=== PATIENT | female | born 1950 | race Caucasian/White ===

== ENCOUNTER 2022-04-03 12:18 | Observation (INO) | payer MEDICARE, SELFPAY ==
[2022-04-03] VITALS (14 sets, daily range): BP systolic 145–185; BP diastolic 66–98; PULSE 65–85; RESP 10–23; TEMP 36.7–36.8; O2SAT 91–100
--- NOTE | ~2022-04-03 | CT_ITS ---
EXAMINATION: CT brain wo con INDICATION: Headache COMPARISON: None TECHNIQUE: Standard unenhanced head CT. The dose-length product (DLP) was 605.33 mGy-cm. The mA was a djusted according to patient size. Iterative reconstruction technique was employed. FINDINGS: There is no acute intraparenchymal hemorrhage. No evidence of mass lesion. No evidence of a cute infarction. There is mild periventricular and subcortical hypodensity probably related to small vessel ischemic disease. There is mild prominence of the sulci and ventricles related to cerebral atr ophy. Intracranial calcified cerebral atherosclerosis is noted. There are no extra-axial collections. There is no mass effect or midline shift. The orbits and soft tissues are unremarkable. The visualiz ed sinuses and mastoid air cells are well aerated. IMPRESSION: 1. No acute intracranial abnormality. 2. Age related findings. Reviewed, dictated and finalized at location A. NESS CONTINUITY COORDINATOR
--- NOTE | ~2022-04-03 | XR_ITS ---
EXAMINATION: XR shoulder LT min 2V DATE: 04/04/2022 15:00 INDICATION: Left shoulder pain. TECHNIQUE: 4 views of left shoulder were obtained. COMPARISON: None. FINDINGS: Bone alignment is normal. No fracture. There is mild osteoarthritis of glenohumeral joint a nd acromioclavicular joint. IMPRESSION: 1. Mild polyarticular osteoarthritis. Reviewed, dictated and finalized at location A. ING MACHINE ASSEMBLER
--- NOTE | ~2022-04-03 | XR_ITS ---
EXAMINATION: XR pelvis 1-2V INDICATION: Pain after fall TECHNIQUE: AP view of the pelvis is obtained. COMPARISON: None available FINDINGS: Bone alignment is normal. There is no fracture. Calcified atherosclerosis is noted. IMPRESSION: 1. No acute osseous abnormality. Reviewed, dictated and finalized at location A. ECTIONAL FOOD SERVICE SUPERVISOR
--- NOTE | ~2022-04-03 | CT_ITS ---
EXAMINATION: CTA BRAIN/CAROTID DATE: 04/04/2022 18:46 INDICATION: Syncope. Carotid artery disease. TECHNIQUE: Computed tomographic angiography (CTA) of the head and neck was performed with 100 mL Omni paque-350 intravenous contrast. Multiplanar reconstructions and maximum intensity projection 3D-recon structions of the carotid arteries and of the intracranial arteries were created by the technologist on a separate workstation. Precontrast CT of the head was also obtained. Automated exposure control and iterative reconstruction technique were employed.The dose-length product was 1683.37 mGy-cm. COMPARISON: Brain MR dated 04/04/2022 FINDINGS: Carotid arteries: Visualized portion of the thoracic aorta is normal in caliber with no dissection. There is a small am ount of atherosclerotic plaque with 0% stenosis of the right and left carotid bulbs relative to yovana l distal artery lumen diameter (NASCET criteria). Mild pulmonary edema at the visualized bilateral up per lung zones along with small posterior layering bilateral pleural effusions. Visualized cervical s oft tissues and superior mediastinum are unremarkable. Severe cervical spondylosis. Head: No acute intracranial hemorrhage, acute infarction or abnormal extra axial fluid collection. Ventricl es are normal and symmetric. No mass/mass effect. Changes of bilateral intraocular lens replacement. The orbits, paranasal sinuses and mastoid air cells are normal. Intracranial arteries Small amount of atherosclerotic plaque with 0% stenosis at the bilateral carotid siphons. There is no hemodynamically significant stenosis in the vertebral, basilar and internal carotid arteries. Verteb ral arteries are codominant. There are no aneurysms identified. Both A1 and P1 segments are patent. The left A1 segment is diminutive with flow likely supply to the left anterior cerebral artery via a patent anterior communicating artery. Cerebral arterial arborization appears symmetric. No abnormally enhancing brain lesions. IMPRESSION: 1. No acute intracranial process. 2. Mild of atherosclerotic plaque with 0% stenosis of the right and left carotid bulbs relative to no rmal distal artery lumen diameter (NASCET criteria). 3. Small amount of nonhemodynamically significant atherosclerotic plaque at the bilateral carotid sip hons. Otherwise unremarkable cerebral CT angiogram with no hemodynamically significant stenosis, diss ection or aneurysm. 4. Mild pulmonary edema and small bilateral pleural effusions. Reviewed, dictated and finalized at location A. AL STUNNER IMPRESSION: 1. No acute intracranial process. 2. Mild of atherosclerotic plaque with 0% stenosis of the right and left caroti d bulbs relative to normal distal artery lumen diameter (NASCET criteria). 3. Small amount of nonhemodynamically significant atherosclerotic plaque at the bilateral carotid siphons. Otherwise unremarkable cerebral CT angiogram with n o hemodynamically significant stenosis, dissection or aneurysm. 4. Mild pulmonary edema and small bilateral pleural effusions.
--- NOTE | ~2022-04-03 | CT_ITS ---
EXAMINATION: CT cervical spine wo con DATE: 04/03/2022 14:04 INDICATION: Neck pain TECHNIQUE: Computed tomography (CT) of the cervical spine was performed without intravenous contrast. The dose-length product (DLP) was 146.25 mGy-cm. Automated exposure control and iterative reconstruc tion technique were employed. COMPARISON: None FINDINGS: There is no fracture. Vertebral body alignment is normal. There is severe loss of intervert ebral disc space height at C3-4, C5-6, and C6-7. The vertebral body heights are maintained. The odont oid process is intact. There is multilevel severe facet and uncovertebral joint osteoarthritis. There appears to be smooth interlobular septal thickening of the visualized lung apices. IMPRESSION: 1. Severe cervical spondylosis without acute findings. 2. Probable mild pulmonary edema in the lung apices. Reviewed, dictated and finalized at location A. AISER PERSONAL PROPERTY
--- NOTE | ~2022-04-03 | MR_ITS ---
EXAMINATION: MR brain/brain stem wo con DATE: 04/04/2022 14:52 INDICATION: Slurred speech. Altered mental status. TECHNIQUE: Magnetic resonance imaging (MRI) of the brain and brainstem was performed without intraven ous contrast. COMPARISON: Head CT 04/03/2022 FINDINGS: There is no intracranial hemorrhage, acute infarction, or abnormal intracranial mass lesion . There are scattered areas of nonspecific increased T2-weighted signal intensity in the cerebral whi te matter, which is within normal limits for the patient's age. The ventricles are normal in size. Th e paranasal sinuses are clear. There are likely changes of ocular lens replacement surgeries. The mas toid air cells are normal. IMPRESSION: 1. Normal aging brain. Reviewed, dictated and finalized at location A. VITIES ATTENDANT IMPRESSION: 1. Normal aging brain.
--- NOTE | ~2022-04-03 | XR_ITS ---
EXAMINATION: XR shoulder RT min 2V DATE: 04/04/2022 15:00 INDICATION: Right shoulder pain. TECHNIQUE: 4 views of right shoulder were obtained. COMPARISON: None. FINDINGS: Bone alignment is normal. No fracture. There is mild osteoarthritis of acromioclavicular candelaria int and glenohumeral joint. IMPRESSION: 1. Mild polyarticular osteoarthritis. Reviewed, dictated and finalized at location A. T TECH
--- NOTE | ~2022-04-03 | XR_ITS ---
EXAMINATION: XR chest 1V portable INDICATION: Chest pain after fall TECHNIQUE: Portable AP chest at 1326 hours COMPARISON: None available FINDINGS: The lungs are free of acute opacities. No pleural effusion or pneumothorax. The cardiomedia stinal silhouette is normal. Surgical clips in the right upper quadrant are likely from prior cholecy stectomy. IMPRESSION: 1. No acute cardiopulmonary abnormality. Reviewed, dictated and finalized at location A. NDER
--- NOTE | 2022-04-03 12:43 | ECG_ITS ---
Measurements Intervals [place] Rate: 65 P: 52 NH: 149 QRS: 101 QRSD: 153 T: 29 QT: 471 QTc: 492 Interpretive Statements SINUS RHYTHM RIGHT AXIS DEVIATION [QRS AXIS > 100] RIGHT BUNDLE BRANCH BLOCK [120+ ms QRS DURATION, UPRIGHT V1, 40+ ms S IN I/aVL/V4/V5/V6] NO PREVIOUS ECG AVAILABLE FOR COMPARISON Electronically Signed On 04-04-2022 11:51:18 SNOW REMOVER by Hair Almaguer M.D.
--- NOTE | 2022-04-03 13:18 | ED.SYNCOPE ---
HPI - Syncope General Chief Complaint: Syncope Stated Complaint: glf, in and out of consciousness, L shoulder pain Time Seen by Provider: 04/03/22 12:43 Source: family and EMS Mode of arrival: EMS History of Present Illness HPI narrative: Patient was sitting on a chair in the shower unattended, witnessed by her daughter that she lost her balance while sitting and fell to the ground, unresponsive for less than 30 seconds, complaining of neck pain. Patient was hospitalized at the [facility] where she used to live at [facility] and then got discharged to rehab with a diagnosis of altered mental status, sepsis, urinary tract infection, acute encephalopathy. Her daughter reported that patient had last fall was 2 weeks ago and was hospitalized at that time at [facility]. Patient moved recently to stay with her daughter. Patient old records showed Patient was admitted to a rehab facility for short-term skilled rehab/nursing, stay s/p hospitalization for altered mental status, sepsis, urinary tract infection and acute encephalopathy. Insurance set last covered day for skilled services for March 20, 2022, however family requested discharge on March 19, 2022. History of dementia, hypertension, diabetes Related Data Allergies Allergy/AdvReac Type Severity Reaction Status Date / Time No Known Allergies Allergy Verified 04/03/22 12:47 Review of Systems Review of Systems: All systems reviewed & are unremarkable except as noted in HPI and below Exam Narrative: General appearance: Well-developed, well-nourished Skin: Normal color, stage I decubitus ulcer left buttock Head: Normocephalic, nontraumatic Eyes: Clear conjunctiva ENT: Oropharynx normal, ears normal, nose normal Neck: C-collar on, diffuse tenderness Chest and respiratory: Airway patent, no respiratory distress, no accessory muscle use Heart: Regular rate/rhythm Abdomen: Soft, nontender, no organomegaly, quiet bowel sounds Vascular: Normal peripheral pulses, normal capillary refill. Musculoskeletal: Normal range of motion, nontender back Neurologic: Alert and oriented to her name only Course Vital Signs Vital signs: Vital Signs Temperature 36.8 C 04/03/22 12:20 Pulse Rate 65 04/03/22 12:20 Respiratory Rate 20 04/03/22 12:20 Blood Pressure 185/98 H 04/03/22 12:20 Pulse Oximetry 95 04/03/22 12:20 Oxygen Delivery Room Air 02/05/23 12:20 Temperature 36.8 C 04/03/22 12:20 Pulse Rate 70 04/03/22 15:45 Respiratory Rate 12 04/03/22 15:45 Blood Pressure 160/66 H 04/03/22 13:31 Pulse Oximetry 100 04/03/22 15:45 Oxygen Delivery Room Air 04/03/22 12:20 MDM - Syncope MDM Narrative Medical decision making narrative: Patient brought to the emergency room by ambulance with her daughter because of a fall while sitting on a chair in the shower. History of a fall, last 1 was 2 weeks ago, patient used to be at [facility], brought to [place] by her daughter who supposed to take care of her. The daughter reported inability to take care of her mom because she needs 24/7 assistant director of financial aid. General weakness, intracranial hemorrhage, electrolyte imbalance, urinary tract infection, pneumonia are my concern. Labs, chest x-ray, CT head, CT cervical spine and pelvic x-ray ordered. Normal saline 1 L IV ordered. Work-up today showed hemoglobin of 9.6, creatinine of 1.6. No old records for comparison. CT head, CT cervical spine, chest x-ray and pelvic x-ray showed no acute abnormalities. Patient laying down in bed unable to manage to get up and stand up or walk. The daughter agreed that patient need to go to a snf. surgical manager consult ordered. No nursing lynn
[2022-04-03 13:39] LABS: Basophils Percent Auto 0.5 % (0.2-1.2); Eosinophils Absolute Auto 0.1 K/mm3 (0-0.3); Hematocrit 29.7 % (37.0-47.0); Hemoglobin 9.6 g/dL (12.0-15.0); Immature Granulocyte Absolute 0.02 K/mm3 (0.00-0.031); Immature Granulocyte Percent A 0.2 % (0-0.5); Lymphocytes Absolute Auto 1.48 K/mm3 (0.9-3.2); Lymphocytes Percent Auto 18.1 % (18.3-44.2); Mean Corpuscular HGB Conc 32.3 g/dl (32-36); Mean Corpuscular Hemoglobin 27.2 pg (26-34); Mean Corpuscular Volume 84.1 fl (80-100); Monocytes Absolute Auto 0.4 K/mm3 (0.1-0.6); Neutrophils Absolute Auto 6.2 K/mm3 (1.3-6.7); Neutrophils Percent Auto 75.2 % (45.5-73.1); Platelet Count Result 288 k/mm3 (150-375); Red Blood Count 3.53 M/mm3 (4.2-5.4); Red Cell Distribution Width 15.7 % (11.5-14.5); White Blood Count 8.2 K/mm3 (4.5-10.0)
[2022-04-03 13:50] LABS: Alanine Aminotransferase 20 U/L (6-35); Alkaline Phosphatase 74 U/L (38-126); Anion Gap 5 mmol/L (8-16); Aspartate Amino Transferase 30 U/L (14-36); Bilirubin,Total 0.7 mg/dL (0.2-1.3); Blood Urea Nitrogen 32 mg/dL (7-17); Calcium 8.9 mg/dL (8.4-10.2); Carbon Dioxide 25 mmol/L (22-30); Chloride 104 mmol/L (98-107); Estimated Glomerular Filt Rate 32; Glucose 167 mg/dL (65-110); Potassium 4.2 mmol/L (3.4-5.0); Sodium 134 mmol/L (137-145)
[2022-04-03 13:59] LABS: Appearance Urine Clear (Clear); Bilirubin Urine Negative (Negative); Blood Urine Trace-intact (Negative); Color Urine Yellow (Yellow); Glucose Urine UA Trace mg/dL (Negative); Ketones Urine Negative (Negative); Leukocyte Esterase Ur Trace LEU/UL (Negative); Nitrate Urine Negative (Negative); Protein Urine 3+ mg/dL (Negative); Urobilinogen Urine 0.2 mg/dL (<2.0)
[2022-04-03 14:12] LABS: Bacteria Urine Trace /hpf; RBC Urine 0-2 /hpf (0-2); Squamous Epithelial Cell Urine Occasional /hpf (Few); WBC Urine 0-3 /hpf
[2022-04-03 14:17] LABS: Add Urine Microscopic? YES
[2022-04-03] MEDS: SODIUM CHLORIDE 0.9% IV 1,000 ML 999 ML IV CONT (15:00)
[2022-04-03] MEDS: ONDANSETRON INJ 4 MG/2 ML VIAL IV PUSH (15:01)
[2022-04-03] MEDS: MORPHINE SULFATE (*CRX) 4 MG/ML INJ IV PUSH (15:01)
[2022-04-03 17:33] LABS: Glucose Point of Care 178 mg/dl (65-105)
--- NOTE | 2022-04-03 18:52 | PM.IMHP ---
H&P: HPI History of Present Illness Date/Time: 04/03/22 18:52 Chief Complaint: Syncope Narrative: This is a 71-year-old female patient who is from [place] . The patient's daughter brought her here from [place] rehab facility on 03/21/2022. The daughters thought that she would be able to take care of her mother at home. The patient does have a history of having syncope. Today the patient was sitting in the chair in the shower unattended and the patient lost her balance and fell to the ground she was unresponsive less than 30 seconds. She was complaining of neck pain. According to the daughter the patient has fallen approximately 2 weeks ago and was hospitalized at [facility] at that time. The patient had been staying at a rehab facility however the interns privileges ran out. Patient does have a history of dementia in the daughters answering the questions for her. The daughter is asking me to fill out some questions to be faxed to rehab facility in [place] so that the patient will be eligible for rehab facility again. I explained that I would have the health care attorney talk with them in the morning. Have no prior labs for comparison. Her H&H is 9.6 and 29.7. Sodium 134. BUN 32 creatinine 1.6. Glucose is 167, 178 and 257. The patient is negative for influenza A/B RSV and COVID. Chest x-ray was read as no acute cardiopulmonary abnormality. Pelvis x-ray was read as no acute osseous abnormality. Head CT was read as no acute intracranial abnormality. Age-related findings. Cervical spine was read as1. Severe cervical spondylosis without acute findings. 2. Probable mild pulmonary edema in the lung apices. The patient also has a chronic pressure ulcer to her left hip which is healing. The patient is being admitted to observation status on the date of service of 04/03/2022 Review of Systems Review of Systems: See HPI All systems reviewed & are unremarkable except as noted in HPI and below Constitutional: Constitutional: Reports as per HPI and Reports no additional constitutional complaints Eyes: Eyes: Reports as per HPI and Reports no additional eye complaints ENT: Reports system reviewed and no additional complaints, except as documented and Reports Normal hearing present Cardiovascular: Cardiovascular: Reports no additional cardiovascular complaints Respiratory: Respiratory: Reports no additional respiratory complaints and Reports no additional respiratory complaints Gastrointestinal: Gastrointestinal: Reports as per HPI and Reports no additional gastrointestinal complaints Musculoskeletal: Musculoskeletal: Reports no additional musculoskeletal complaints Integumentary/Breasts: Skin/Breast: Reports system reviewed and no additional complaints, except as docu and Reports as per HPI Neurologic: Reports system reviewed and no additional complaints, except as documented, Reports as per HPI and Reports Normal hearing present Psychiatric: Psychiatric: Reports no additional psychiatric complaints and Reports as per HPI Endocrine: Endocrine: Reports no additional endocrine complaints Hematologic/Lymphatic: Hematologic/Lymphatic: Reports no additional hematologic/lymphatic complaints Allergic/Immunologic: Allergic/Immunologic: Reports no additional allergic/immunologic complaints [facility] Past Medical History Medical History Decubitus ulcer, hip Dementia Diabetic acidosis, type II HTN (hypertension), benign Hyperlipidemia Surgical History Surgical History H/O carotid endarterectomy H/O tubal ligation Family History Family History (Updated 04/03/22 @ 23:49 by Vidhi Young NP) Unknown Unknown family medical history Social History Social History (Updated 04/03/22 @ 23:49 by Vidhi Young NP) Social History: She has 6 children and is . She is a former smoker. She is disabled. The patient
[2022-04-03 19:43] LABS: Influenza A QL RT-PCR Negative (Negative); Influenza B QL RT-PCR Negative (Negative); RSV RNA, RT-PCR Negative (Negative); SARS-CoV-2 RNA PCR Negative
[2022-04-03] MEDS: SODIUM CHLORIDE 0.9% IV 1,000 ML 150 ML IV CONT (20:24)
--- NOTE | 2022-04-03 21:12 | ADMGEN ---
This patient, Neva Billy, was admitted to [facility] Surg Room 306-01 at 2044. Patient/family oriented to hospital policies and general routines including ID bracelet, bed and alarms, visiting hours, pain management, procedures, bathroom and other care routines, personal items, smoking policy, room service/diet, and visiting hours. Information on how to activate the Rapid Response Team has been discussed. Patient/Family are encouraged to report perceived risks to care and to ask questions if they do not understand what they are told or what they should do.
[2022-04-03 22:37] LABS: Glucose Point of Care 257 mg/dl (65-105)
[2022-04-04] VITALS (9 sets, daily range): BP systolic 132–170; BP diastolic 59–68; PULSE 72–83; RESP 14–20; TEMP 36.2–36.8; O2SAT 97–99; BMI 24.8
[2022-04-04 01:05] LABS: Hematocrit 26.1 % (37.0-47.0); Hemoglobin 8.1 g/dL (12.0-15.0)
[2022-04-04] MEDS: SODIUM CHLORIDE 0.9% IV 1,000 ML 150 ML IV CONT (04:11)
[2022-04-04 06:34] LABS: Basophils Percent Auto 0.3 % (0.2-1.2); Eosinophils Percent Auto 0.6 % (0-4.4); Hematocrit 26.3 % (37.0-47.0); Hemoglobin 8.2 g/dL (12.0-15.0); Immature Granulocyte Absolute 0.02 K/mm3 (0.00-0.031); Immature Granulocyte Percent A 0.3 % (0-0.5); Lymphocytes Absolute Auto 1.44 K/mm3 (0.9-3.2); Lymphocytes Percent Auto 22.7 % (18.3-44.2); Mean Corpuscular HGB Conc 31.2 g/dl (32-36); Mean Corpuscular Volume 86.5 fl (80-100); Mean Platelet Volume 9.6 fl (7.4-10.4); Monocytes Absolute Auto 0.5 K/mm3 (0.1-0.6); Monocytes Percent Auto 7.9 % (2.6-8.5); Neutrophils Absolute Auto 4.3 K/mm3 (1.3-6.7); Neutrophils Percent Auto 68.2 % (45.5-73.1); Platelet Count Result 278 k/mm3 (150-375); Red Blood Count 3.04 M/mm3 (4.2-5.4); Red Cell Distribution Width 15.7 % (11.5-14.5); White Blood Count 6.3 K/mm3 (4.5-10.0)
[2022-04-04 06:37] LABS: Hemoglobin A1C 9.8 % (<5.7)
[2022-04-04 06:43] LABS: Anion Gap 2 mmol/L (8-16); Blood Urea Nitrogen 23 mg/dL (7-17); Calcium 7.8 mg/dL (8.4-10.2); Carbon Dioxide 23 mmol/L (22-30); Chloride 106 mmol/L (98-107); Estimated Glomerular Filt Rate 49; Glucose 276 mg/dL (65-110); Potassium 3.9 mmol/L (3.4-5.0); Sodium 131 mmol/L (137-145)
[2022-04-04 07:52] LABS: Glucose Point of Care 259 mg/dl (65-105)
[2022-04-04] MEDS: INSULIN ASPART (*BKC) 100 UNITS/ML SUB-Q ×4 (08:55→17:12)
[2022-04-04] MEDS: ACETAMINOPHEN 325 MG TABLET 650 MG PO (08:55)
[2022-04-04] MEDS: GABAPENTIN 400 MG CAPSULE 800 MG PO ×2 (09:41→16:03)
[2022-04-04] MEDS: ASCORBIC ACID 500 MG TABLET PO (09:41)
[2022-04-04] MEDS: MONTELUKAST SODIUM 10 MG TABLET PO (09:41)
[2022-04-04] MEDS: THERAPEUTIC MULTIVITAMINS/MINERALS TAB (*BKC) 1 TABLET PO (09:41)
[2022-04-04] MEDS: MEMANTINE 10 MG TABLET PO ×2 (09:41→20:53)
[2022-04-04] MEDS: FLUTICASONE PROPIONATE 0.05% NA SPR 16 GM BTL (*BKC) 1 SPRAY NASAL (09:41)
[2022-04-04] MEDS: amLODIPine BESYLATE 5 MG TABLET 10 MG PO (09:41)
[2022-04-04] MEDS: METOPROLOL TARTRATE 25 MG TABLET PO ×2 (09:42→20:52)
[2022-04-04] MEDS: FERROUS SULFATE 324 MG TABLET PO (09:42)
[2022-04-04 11:44] LABS: Glucose Point of Care 251 mg/dl (65-105)
--- NOTE | 2022-04-04 14:13 | PCPTNOTE ---
Attempted PT evaluation, Transportation arrived at start of session to take pt to MRI. RN aware. Will follow.
--- NOTE | 2022-04-04 15:50 | PM.IMPN ---
Progress Note: A&P Assessment and Plan (1) Unresponsive episode: Code(s): R41.89 - Other symptoms and signs involving cognitive functions and awareness Status: Acute Assessment and Plan: Patient had an episode of unresponsiveness lasting for 30 seconds. Etiology unclear, possibly syncope versus seizure versus stroke. Head CT with no acute findings. Brain MRI with no acute findings. Will obtain CTA of the head/ neck given history of carotid artery disease. Echocardiogram with bubble study. Consider Neurology consultation based on above workup. Continue to monitor on telemetry. (2) Fall: Code(s): W19.XXXA - Unspecified fall, initial encounter Status: Acute Assessment and Plan: Fall from chair on to ground secondary to unresponsive episode as above. Head CT with no acute findings. Pelvis x-ray with no injuries. Patient complained of bilateral shoulder pain, left and right shoulder x-rays with mild osteoarthritis but no osseous abnormalities. Supportive care. Implement fall precautions. Appreciate PT / OT eval. Patient not able to be cared for at home and requiring placement at rehab facility. (3) Carotid artery disease: Code(s): I77.9 - Disorder of arteries and arterioles, unspecified Status: Acute Assessment and Plan: Patient with history of carotid endarterectomy. Head/neck CTA pending as above given unresponsive episode. (4) Dysarthria: Code(s): R47.1 - Dysarthria and anarthria Status: Acute Assessment and Plan: Patient's daughter reports concerns for intermittent dysarthria. Speech clear during my exam. Will proceed with speech therapy communication evaluation (5) Renal insufficiency: Code(s): N28.9 - Disorder of kidney and ureter, unspecified Status: Acute Assessment and Plan: no prior labs available to establish baseline. Creatinine was 1.6 on presentation and has improved to 1.1 today following IV fluid rehydration. Suspect she is near her baseline at this time. Will discontinue IV fluids and continue to monitor renal function (6) Anemia: Code(s): D64.9 - Anemia, unspecified Status: Acute Assessment and Plan: no prior labs to establish baseline. Hemoglobin has declined 1 point since admission, suspect this to be dilutional secondary to IV fluid rehydration. No evidence of active bleeding. Stool occult blood test has been ordered and is awaiting collection. Will evaluate iron panel, B12, and folate. Continue to monitor H&H with a.m. labs (7) Dementia: Code(s): F03.90 - Unspecified dementia, unspecified severity, without behavioral disturbance, psychotic disturbance, mood disturbance, and anxiety Status: Chronic Assessment and Plan: patient is reportedly at her baseline mental status, oriented to self only. Continue donepezil and memantine. (8) HTN (hypertension), benign: Code(s): I10 - Essential (primary) hypertension Status: Chronic Assessment and Plan: Blood pressures are stable at this time. Last BP 140/68. Continue home amlodipine and metoprolol tartrate (9) Decubitus ulcer, hip: Code(s): L89.209 - Pressure ulcer of unspecified hip, unspecified stage Status: Chronic Assessment and Plan: Chronic, daughter reports this is improving. Nursing staff monitoring and providing appropriate dressing. Appreciate wound care evaluation (10) Type 2 diabetes mellitus: Code(s): E11.9 - Type 2 diabetes mellitus without complications Status: Acute Assessment and Plan: A1c is 9.8. Blood sugars are elevated above target in the 250s. Continue home Lantus. Add scheduled NovoLog with meals. Continue Accu-Cheks, moderate-dose sliding scale insulin, and hypoglycemic protocol. Monitor glucose trends and adjust insulin regimen as needed Subjective Date/time seen: 04/04/22 15:50 Interval h
[2022-04-04] MEDS: HYDROcodone/acetaminophen (*CRX) 5-325 MG TABLET 1 TAB PO (16:03)
[2022-04-04 16:22] LABS: Glucose Point of Care 325 mg/dl (65-105)
[2022-04-04] MEDS: INSULIN GLARGINE (*BKC) 100 UNITS/ML 10 UNITS SUB-Q (17:14)
[2022-04-04] MEDS: ALBUTEROL SULFATE (*SP) AEROSOL 1 PUFF 2 PUFF INHALATION (20:35)
[2022-04-04] MEDS: DONEPEZIL HCL 10 MG TABLET PO (20:51)
[2022-04-04] MEDS: FAMOTIDINE 20 MG TABLET 40 MG PO (20:51)
[2022-04-04] MEDS: ATORVASTATIN 40 MG TABLET 80 MG PO (20:51)
[2022-04-04 21:26] LABS: Glucose Point of Care 154 mg/dl (65-105)
[2022-04-05] VITALS (7 sets, daily range): BP systolic 123–139; BP diastolic 59–68; PULSE 66–82; RESP 14–16; TEMP 36.2–36.7; O2SAT 95–97
--- NOTE | 2022-04-05 | ECHO_ITS ---
Patient Info Name: Neva Billy Age: 71 years : 1950 Gender: Female Ht: 64 in Wt: 144 lbs BSA: 1.73 m2 HR: 69 bpm BP: 139 / 68 mmHg Heart Rhythm: Sinus Rhythm Exam Date: 04/05/2022 11:23 AM Exam Location: [facility] Pulmonary Patient Status: Outpatient Admit Date: 04/03/2022 Staff Ordering Physician: Marly Gross PA-C Senior Controls Technician: José Miguel Hand RDCS, RT Attending Provider: Marly Gross PA-C Referring Physician: Ginny COLORADO; Exam Type: CA echo doppler w bubble study Study Info Indications - CVA R55 - Syncope and collapse Complete two-dimensional, color flow and Doppler transthoracic echocardiogram is performed. Strain analysis performed. Summary 1. Complete two-dimensional, color flow and Doppler transthoracic echocardiogram is performed. 2. Left ventricular chamber dimension is normal. 3. Left ventricular systolic function is normal, estimated at 60-65%. 4. There is mildly increased left ventricular wall thickness. 5. Global longitudinal strain is abnormal at -16 %. 6. Right ventricular systolic function is normal. 7. Left atrial chamber dimension is mildly enlarged. 8. Intact interatrial septum visualized by color flow and agitated saline imaging. Negative bubble study. 9. There is mild aortic valve calcification. 10. There is mild mitral valve regurgitation. 11. Dilated inferior vena cava with <50% collapse upon inspiration consistent with elevated right atrial pressure, 15 mmHg. Left Ventricle Left ventricular chamber dimension is normal. Left ventricular systolic function is normal, estimated at 60-65%. There is mildly increased left ventricular wall thickness. Global longitudinal strain is abnormal at -16 %. Right Ventricle Right ventricular chamber dimension is normal. Right ventricular systolic function is normal. Left Atria Left atrial chamber dimension is mildly enlarged. Right Atria Right atrial chamber dimension is normal. Atrial Septum Intact interatrial septum visualized by color flow and agitated saline imaging. Negative bubble study. Aortic Valve The aortic valve is trileaflet. There is no aortic valve stenosis. There is no aortic valve regurgitation. There is mild aortic valve calcification. Pulmonic Valve The pulmonic valve is not well visualized. There is no pulmonic regurgitation. Mitral Valve The mitral valve has normal leaflets. There is no mitral valve stenosis. There is mild mitral valve regurgitation. Tricuspid Valve The tricuspid valve leaflets are normal. There is no tricuspid valve regurgitation. Pericardium/Pleural There is no pericardial effusion. Inferior Vena Cava Dilated inferior vena cava with <50% collapse upon inspiration consistent with elevated right atrial pressure, 15 mmHg. Aorta The aortic root size at the sinus of Valsalva is normal. Left Ventricular Outflow Tract Name Value Normal LVOT 2D LVOT Diameter 2.0 cm LVOT Doppler LVOT Peak Gradient 3 mmHg LVOT Mean Gradient 1 mmHg LVOT VTI 20 cm
[2022-04-05 06:50] LABS: Hemoglobin 9.1 g/dL (12.0-15.0); Mean Corpuscular HGB Conc 31.4 g/dl (32-36); Mean Corpuscular Hemoglobin 27.2 pg (26-34); Mean Corpuscular Volume 86.8 fl (80-100); Mean Platelet Volume 9.5 fl (7.4-10.4); Platelet Count Result 271 k/mm3 (150-375); Red Blood Count 3.34 M/mm3 (4.2-5.4); Red Cell Distribution Width 15.8 % (11.5-14.5); White Blood Count 7.4 K/mm3 (4.5-10.0)
[2022-04-05 07:01] LABS: Alanine Aminotransferase 19 U/L (6-35); Albumin Level 3.3 g/dL (3.5-5.1); Alkaline Phosphatase 66 U/L (38-126); Anion Gap 5 mmol/L (8-16); Aspartate Amino Transferase 22 U/L (14-36); Bilirubin,Total 0.7 mg/dL (0.2-1.3); Blood Urea Nitrogen 22 mg/dL (7-17); Calcium 8.4 mg/dL (8.4-10.2); Carbon Dioxide 23 mmol/L (22-30); Chloride 105 mmol/L (98-107); Estimated CRCL calculation 34 ml/min; Estimated Glomerular Filt Rate 45; Glucose 139 mg/dL (65-110); Potassium 3.8 mmol/L (3.4-5.0); Sodium 133 mmol/L (137-145)
[2022-04-05] MEDS: ALBUTEROL SULFATE (*SP) AEROSOL 1 PUFF 2 PUFF INHALATION ×2 (07:32→12:37)
[2022-04-05 08:11] LABS: Glucose Point of Care 160 mg/dl (65-105)
[2022-04-05] MEDS: INSULIN ASPART (*BKC) 100 UNITS/ML SUB-Q ×3 (09:04→13:05)
[2022-04-05] MEDS: MEMANTINE 10 MG TABLET PO (09:05)
[2022-04-05] MEDS: amLODIPine BESYLATE 5 MG TABLET 10 MG PO (09:05)
[2022-04-05] MEDS: THERAPEUTIC MULTIVITAMINS/MINERALS TAB (*BKC) 1 TABLET PO (09:05)
[2022-04-05] MEDS: FERROUS SULFATE 324 MG TABLET PO (09:05)
[2022-04-05] MEDS: ASCORBIC ACID 500 MG TABLET PO (09:05)
[2022-04-05] MEDS: MONTELUKAST SODIUM 10 MG TABLET PO (09:05)
[2022-04-05] MEDS: METOPROLOL TARTRATE 25 MG TABLET PO (09:06)
[2022-04-05] MEDS: GABAPENTIN 400 MG CAPSULE 800 MG PO (09:06)
[2022-04-05] MEDS: FLUTICASONE PROPIONATE 0.05% NA SPR 16 GM BTL (*BKC) 1 SPRAY NASAL (09:06)
[2022-04-05 11:07] LABS: Iron 18 ug/dL (37-170)
[2022-04-05 11:20] LABS: Percent Iron Saturation 6 % (20-50)
[2022-04-05 11:38] LABS: Glucose Point of Care 353 mg/dl (65-105)
[2022-04-05 13:09] LABS: Folic Acid 12.2 ng/mL (2.76->20)
[2022-04-05] MEDS: HYDROcodone/acetaminophen (*CRX) 5-325 MG TABLET 1 TAB PO (13:09)
--- NOTE | 2022-04-05 14:53 | PM.DS ---
DS: Admitting Diagnosis Discharge Date 04/05/2022 Admitting Diagnosis unresponsive episode DS: Discharge Diagnosis Discharge Diagnosis (1) Unresponsive episode: Code(s): R41.89 - Other symptoms and signs involving cognitive functions and awareness Status: Acute Assessment and Plan: Patient had an episode of unresponsiveness lasting for 30 seconds. Etiology unclear with differentials including syncope versus seizure versus stroke. Head CT with no acute findings. Brain MRI with no acute findings. CTA of the head/ neck with no significant stenosis. Echocardiogram with bubble study Unremarkable with no intracardiac shunt. discussed the case with Neurology who recommended outpatient EEG. Monitored on telemetry during admission and maintain normal sinus rhythm. (2) Fall: Code(s): W19.XXXA - Unspecified fall, initial encounter Status: Acute Assessment and Plan: Fall from chair on to ground secondary to unresponsive episode as above. Head CT with no acute findings. Pelvis x-ray with no injuries. Left and right shoulder x-ray with mild osteoarthritis but no osseous abnormalities. Supportive care provided. Implement fall precautions. participated in PT / OT during admission. Patient discharged home under care of her daughter with plans for follow-up at rehab facility in her home [facility]. (3) Carotid artery disease: Code(s): I77.9 - Disorder of arteries and arterioles, unspecified Status: Acute Assessment and Plan: Patient with history of carotid endarterectomy. Head/neck CTA evaluated during admission 0% stenosis of right and left carotid balls and small amount of non hemodynamically significant atherosclerotic plaque bilateral carotid siphons with no hemodynamically significant stenosis (4) Dysarthria: Code(s): R47.1 - Dysarthria and anarthria Status: Acute Assessment and Plan: Patient's daughter reports concerns for intermittent dysarthria. Speech clear during my exam. participated in speech therapy communication evaluation with no ongoing speech therapy requirements (5) Renal insufficiency: Code(s): N28.9 - Disorder of kidney and ureter, unspecified Status: Acute Assessment and Plan: no prior labs available to establish baseline. Creatinine was 1.6 on presentation and improved to 1.2 today following IV fluid rehydration. Suspect she is near her baseline. continue to encourage adequate oral hydration. Follow-up with PCP for routine renal function monitoring (6) Anemia: Code(s): D64.9 - Anemia, unspecified Status: Acute Assessment and Plan: No prior labs to establish baseline. Hemoglobin with slight decline following admission which was likely dilutional secondary to IV fluid rehydration. No evidence of active bleeding. Iron stores evaluated in are low, continue oral iron supplementation. B12 found to be low and patient was started on supplementation. (7) Dementia: Code(s): F03.90 - Unspecified dementia, unspecified severity, without behavioral disturbance, psychotic disturbance, mood disturbance, and anxiety Status: Chronic Assessment and Plan: Patient is reportedly at her baseline mental status, oriented to self only. Continue donepezil and memantine. (8) HTN (hypertension), benign: Code(s): I10 - Essential (primary) hypertension Status: Chronic Assessment and Plan: Blood pressures stable during admission. Continue home amlodipine and metoprolol tartrate (9) Decubitus ulcer, hip: Code(s): L89.209 - Pressure ulcer of unspecified hip, unspecified stage Status: Chronic Assessment and Plan: Chronic, daughter reports this is improving. evaluated by wound care team during admission. Continue with dressing (10) Type 2 diabetes mellitus: Code(s): E11.9 - Type 2 diabetes mellitus without complications
[2022-04-05] MEDS: CYANOCOBALAMIN INJ 1,000 MCG/ML VIAL 1000 MCG IM (15:18)
== END 2022-04-05 15:35 | disposition home or self-care (01) ==
LOC: ANHED 15:23 → ANH3MEDSUR 20:29
PROVIDERS: Nurse Practitioner; Admitting Provider Internal Medicine; Emergency Provider Emergency Medicine; PCP Nurse Practitioner Family; Visit Provider Physician Assistant
DX: R41.89 Other symptoms and signs involving cognitive functions and awareness (principal); W07.XXXA Fall from chair, initial encounter; Y93.E1 Activity, personal bathing and showering; I77.9 Disorder of arteries and arterioles, unspecified; R47.1 Dysarthria and anarthria; N28.9 Disorder of kidney and ureter, unspecified; D64.9 Anemia, unspecified; F03.90 Unspecified dementia, unspecified severity, without behavioral disturbance, psychotic disturbance, mood disturbance, and anxiety; I10 Essential (primary) hypertension; E11.9 Type 2 diabetes mellitus without complications; Z20.822 Contact with and (suspected) exposure to COVID-19; L89.229 Pressure ulcer of left hip, unspecified stage; M54.2 Cervicalgia; E78.5 Hyperlipidemia, unspecified; I08.0 Rheumatic disorders of both mitral and aortic valves; M47.812 Spondylosis without myelopathy or radiculopathy, cervical region; M15.9 Polyosteoarthritis, unspecified; J81.1 Chronic pulmonary edema; J90 Pleural effusion, not elsewhere classified; I45.10 Unspecified right bundle-branch block; R94.31 Abnormal electrocardiogram [ECG] [EKG]; Z87.891 Personal history of nicotine dependence; Z79.51 Long term (current) use of inhaled steroids; Z79.1 Long term (current) use of non-steroidal anti-inflammatories (NSAID); Z79.4 Long term (current) use of insulin; Z79.899 Other long term (current) drug therapy
CPT/HCPCS: 36415; 70450; 70496; 70498; 70551; 71045; 72125; 72170; 73030; 80048; 80053; 81001; 82607; 82728; 82746; 82948; 83036; 83540; 83550; 85014; 85018; 85025; 85027; 87637; 92523; 93005; 93306; 94640; 96361; 96372; 96374; 96375; 97161; 97165; 99285; A9270; G0378; J1815; J2270; J2405; J3420; J7030; Q9967